=== PATIENT | male | born 1950 ===

== ENCOUNTER 2019-06-16 20:36 | Observation (INO) | payer MEDICARE ==
--- OUTSIDE RECORDS SUMMARY | 2019-06-16 20:49 | XMS REPORT | Continuity of Care Document ---
:1950 External Reference #:[id number] Author Name Donnie Estrada MD Address [address] [place] [address] Care Team Providers Name Role Phone Cary Ling M.D. Care Team Information Cab Starter [phone] Problems Active Problems Provider Date Essential hypertension Donnie Estrada MD Onset: 07/22/2008 Social History Type Date Description Comments Sex Unknown Tobacco Use Start: Unknown Never Smoked Cigarettes Tobacco Use Start: Unknown has never smoked cigars Tobacco Use Start: Unknown has never smoked a pipe Smokeless Tobacco has never used smokeless tobacco ETOH Use Current Alcohol Use Occasionally ETOH Use Currently occasionally consumes alcohol Tobacco Use Start: Unknown Patient has never smoked Smoking Status Reviewed: 06/04/19 Patient has never smoked Allergies, Adverse Reactions, Alerts Description No Known Drug Allergies Medications Active Medications SIG Qnty Indications Ordering Provider Date Crestor Unknown Lisinopril Unknown Metoprolol as directed Unknown Clopidogrel Bisulfate as directed Unknown 75mg Tablets Immunizations Description No Information Available Vital Signs Date Vital Result Comment 06/04/2019 2:23pm Weight 199.00 lb Weight 90.266 kg Height 68 inches 5'8" Height in cm's 172.7 cm BMI (Body Mass Index) 30.3 kg/m2 01/28/2009 3:56pm Heart Rate 88 /min Respiratory Rate 16 /min Weight 195.00 lb Weight 88.452 kg Results Description No Information Available Procedures Date Code Description Status 06/04/2019 40376 Tympanometry Completed 06/04/2019 54323 Comprehensive Audiogram Completed Medical Devices Description No Information Available Encounters Type Date Location Provider Dx Diagnosis Office Visit 06/04/2019 Linda Tolentino H61.23 Impacted cerumen, 2:15p 09/25/07 MD Sean bilateral H90.3 Sensorineural hearing loss, bilateral Assessments Date Code Description Provider 06/04/2019 H61.23 Impacted cerumen, bilateral Donnie Estrada MD 06/04/2019 H90.3 Sensorineural hearing loss, bilateral Donnie Estrada MD Plan of Treatment No Information Available Functional Status Description No Information Available Mental Status Description No Information Available Referrals Description No Information Available
--- NOTE | 2019-06-16 21:28 | ED ---
Syncope/Near Syncope - HPI Summary HPI Summary: The patient is a 69 y/o M arriving by ambulance to [facility] accompanied by with a chief complaint of syncopal episode with LOC and loss of consciousness occurring at 1830 tonight. He reports that he had been outside on his porch grilling chicken when he went and sat the chicken with his and had a sudden onset sensation of decreased appetite. He then had a syncopal episode which he doesnt remember, but his notes that he slumped over into the chair and was profusely diaphoretic. His then called 911, but the pt had to pass a BM, so his walked him to the bathroom, and the pt notes he somewhat remembers this. He does remember when EMS arrived. There was no head trauma associated. Currently, he states he feels 80% normal with symptoms rated 0/10 in severity. He denies any CP, SOB, headache, or dizziness. PMHx: angina, CAD, HTN, martin [place], cardiac stent placement. FHx: cardiac disease (TN in father). Nonsmoker, weekly EtOH, no substance use. Medications reviewed. Allergies noted. - History Of Current Complaint Chief Complaint: EDSyncope Time Seen by Provider: 06/16/19 21:19 Hx Obtained From: Patient, Family/Mold Laminator - Onset/Duration: Sudden Onset, Still Present - feels mostly back to normal but awake, alert and oriented in the ED Timing: Hours - 1830 Context: Witnessed, Loss Of Consciousness Activity At Onset: Other - ambulating at home Associated Head Trauma: No Aggravating Factor(s): Nothing Alleviating Factor(s): Nothing Associated Signs And Symptoms: Diaphoresis, Other - Negative: headache, CP, SOB , dizziness - Allergies/Home Medications Allergies/Adverse Reactions: Allergies Allergy/AdvReac Type Severity Reaction Status Date / Time No Known Allergies Allergy Verified 06/30/16 11:18 PMH/Surg Hx/FS Hx/Imm Hx Endocrine/Hematology History: Denies: Hx Diabetes Cardiovascular History: Reports: Hx Angina, Hx Coronary Artery Disease, Hx Hypercholesterolemia, Hx Hypertension, Hx Myocardial Infarction - martin [place], Hx Valvular Heart Disease Respiratory History: Denies: Hx Asthma Sensory History: Reports: Hx Contacts or Glasses Opthamlomology History: Reports: Hx Contacts or Glasses - Surgical History Surgical History: Yes Surgery Procedure, Year, and Place: cardiac stents Infectious Disease History: No Infectious Disease History: Denies: Traveled Outside the [place] in Last 30 Days - Family History Known Family History: Positive: Cardiac Disease - father with TN and CAD, Hypertension - Social History Alcohol Use: Weekly Hx Substance Use: No Substance Use Type: Reports: None Hx Tobacco Use: No Smoking Status (MU): Never Smoked Tobacco Have You Smoked in the Last Year: No Review of Systems Positive: Skin Diaphoresis Negative: Chest Pain Negative: Shortness Of Breath Neurological: Other - Negative: dizziness. Positive: Syncope All Other Systems Reviewed And Are Negative: Yes Physical Exam - Summary Physical Exam Summary: Appearance: Well-appearing, Well-nourished, lying in bed comfortably Skin: Warm, dry, no obvious rash Eyes: sclera anicteric, no conjunctival pallor ENT: mucous membranes moist, pharynx appears normal Neck: Supple, nontender Respiratory: Clear to auscultation, no signs of respiratory distress Cardiovascular: Normal S1, S2. No murmurs. Normal distal pulses in tibial and radial bilaterally. Abdomen: Soft, nontender, normal active bowel sounds present Musculoskeletal: Normal, Strength/ROM Intact, Motor function in all 4 extremities is normal and symmetric. There is no rigidity or tremor noted. Neurological: A&Ox3, awake and alert, mentation is normal, speech is fluent and appropriate Psychiatric: affect is normal, does not appear anxious or depressed Triage Information Reviewed: Yes Vital Signs On Initial Exam: Initial Vitals Temp Pulse Resp BP Pulse Ox 97.5 F 68 16 110/72 94 06/16/19 21:04 06/16/19 21:04 06/16/19 21:04 06/16/19 21:04 06/16/19 21:04 Vital Signs Reviewed: Yes Diagnostics - Vital Signs Vital Signs Temp Pulse Resp BP Pulse Ox 06/16/19 21:04 97.5 F 68 16 110/72 94 - Laboratory Result Diagrams: 06/16/19 22:31 06/16/19 22:57 Lab Statement: Any lab studies that have been ordered have been reviewed, and results considered in the medical decision making process. - Radiology CXR Radiology Interpretation Completed By: ED Physician Summary of Radiographic Findings: No acute process. ED physician has interpreted this report. Pending official report. - EKG 2248 Cardiac Rate: NL - 62 bpm EKG Rhythm: Sinus Rhythm Summary of EKG Findings: NSR at 62 P waves, QRS complex, and T waves are within normal limits, T waves and intervals are normal. Isolated PAC. This is an otherwise normal EKG. ED physician has reviewed and interpreted this EKG. Re-Evaluation - Re-Evaluation First Eval Re-Evaluation Time: 23:15 Comment: We discussed all results and plan for admission. Course/Dx Course Of Treatment: Pt is a 69 y/o M arriving by ambulance with cc of syncopal event accompanied by transient LOC and diaphoresis without any other symptoms including CP, SOB, headache, or dizziness occurring at 1830 tonight. Upon physical exam, the pt exhibits no acute abnormalities. EKG at 2245 reveals NSR at 62 BPM with isolated PAC but is otherwise normal. Blood work reveals hct of 39, MCH of 33, plt count of 122, carbon dioxide of 21, glucose of 111, calcium of 8.4, total protein of 5.8, and globulin of 1.9. Chest x-ray is negative, per my interpretation. Dr. Vergara, hospitalist, accepts the pt for admission at 2330. He understands and agrees with this plan. Dx is syncope. - Diagnoses Provider Diagnoses: Syncope - Physician Notifications Discussed Care of Patient With: Mike Vergara - hospitalist Time Discussed With Above Provider: 23:30 Instructed by Provider To: Admit As Observation - I discussed the pt's case with Dr. Vergara, and he accepts the pt for admission. Discharge ED - Sign-Out/Discharge Documenting (check all that apply): Patient Departure - Patient is accepted for admission by Patient Received Moderate/Deep Sedation with Procedure: No - Discharge Plan Condition: Stable Disposition: ADMITTED TO [facility] Referrals: Austin Centeno MD [Primary Care Provider] - - Billing Disposition and Condition Condition: STABLE Disposition: Admitted to [facility] - Attestation Statements Document Initiated by Scribe: Yes Documenting Scribe: Ade Kingston Provider For Whom Sergeyibjase is Documenting (Include Credential): Dr. Walter Mcgee MD Scribe Attestation: Ade Durand, scribed for Dr. Walter Mcgee MD on 06/16/19 at 2359. Status of Scribe Document: Ready
[2019-06-16] MEDS ORDERED: NS 0.9% 1000 ML** 2,000 ML IV ONE (22:36)
[2019-06-16 23:03] LABS: ABS Lymphocytes 0.9 10^3/ul (1.0-4.8); ABS Monocytes 0.4 10^3/ul (0-0.8); ABS Neutrophils 6.7 10^3/ul (1.5-7.7); Eosinophil % 0.2 %; Hematocrit 39 % (42-52); Lymphocyte % 11.8 %; Mean Corpuscular HGB Conc 36 g/dL (31-36); Mean Corpuscular Hemoglobin 33 pg (27-31); Mean Corpuscular Volume 94 fL (80-94); Mean Platelet Volume 8.1 fL (7.4-10.4); Platelet Count 122 10^3/uL (150-450); Red Blood Count 4.18 10^6 /uL (4.18-5.48); Red Cell Distribution Width 13 % (10-15)
[2019-06-16 23:20] LABS: Albumin 3.9 g/dL (3.2-5.2); Albumin/Globulin Ratio 2.1 (1-3); BUN/Creatinine Ratio 11.8 (8-20); Calcium 8.4 mg/dL (8.6-10.3); EGFR African American 80.3 (>60); EGFR Non-African American 66.4 (>60); Globulin 1.9 g/dL (2-4); Magnesium 1.9 mg/dL (1.9-2.7); Total Bilirubin 0.4 mg/dL (0.2-1.0); Total Protein 5.8 g/dL (6.4-8.9)
[2019-06-17 00:04] LABS: TSH (Thyroid Stimulating Horm) 0.53 mcIU/mL (0.34-5.60)
[2019-06-17] MEDS: Lactated Ringers 1000 ML Bag* 1,000 ML IV SCH ×2 (02:59→12:27)
[2019-06-17] MEDS: Enoxaparin(*) 40 MG/0.4 ML SYR SUBCUT SCH ×2 (03:04→20:35)
[2019-06-17 05:27] LABS: ABS Lymphocytes 1.5 10^3/ul (1.0-4.8); ABS Monocytes 0.3 10^3/ul (0-0.8); ABS Neutrophils 3.2 10^3/ul (1.5-7.7); Eosinophil % 0.9 %; Hematocrit 38 % (42-52); Hemoglobin 13.6 g/dL (14.0-18.0); Lymphocyte % 29.7 %; Mean Corpuscular HGB Conc 36 g/dL (31-36); Mean Corpuscular Hemoglobin 34 pg (27-31); Mean Corpuscular Volume 94 fL (80-94); Mean Platelet Volume 8.8 fL (7.4-10.4); Nucleated Red Blood Cells % 0.1; Platelet Count 113 10^3/uL (150-450); Red Blood Count 4.04 10^6 /uL (4.18-5.48); Red Cell Distribution Width 13 % (10-15); White Blood Count 5.1 10^3/uL (3.5-10.8)
[2019-06-17 05:42] LABS: Albumin 3.8 g/dL (3.2-5.2); BUN/Creatinine Ratio 11.5 (8-20); EGFR Non-African American 77.7 (>60); Globulin 1.9 g/dL (2-4); Potassium 4.1 mmol/L (3.5-5.0); Total Bilirubin 0.5 mg/dL (0.2-1.0); Total Protein 5.7 g/dL (6.4-8.9)
--- NOTE | 2019-06-17 07:50 | HP ---
CC: Dr. Donnie Evans * ADMISSION HISTORY AND PHYSICAL: DATE OF ADMISSION: 06/17/19 PRIMARY CARE PHYSICIAN: Austin Centeno MD; however, the patient does not recollect the new PCP as he only saw the doctor once. FIREWORKS INSPECTOR: Dr. Evans. CHIEF COMPLAINT: Syncope. HISTORY OF PRESENT ILLNESS: This is a 69-year-old male with past medical history of hypertension, hyperlipidemia, coronary artery disease status post 3 stents in 2014, was brought in due to syncopal episode. The patient stated that he was in his usual state of health up until this evening when he was grilling some chicken on the porch. He took a piece of the chicken and brought it to his and sat down; at which point, he was feeling severely dizzy and some nausea. He does not recollect after that. The next thing, he remembers is waking up. According to his , he sat down and he just suddenly slumped over unconscious and he had a loss of consciousness for about 2 minutes. There is no documentation of any limb movement during this time; however, the patient did have an episode of loose bowel movement with bowel incontinence during the altered mental status. After which, he woke up and he was walking towards the bathroom as he noticed that he soiled himself but he continued to have dizziness throughout this time. He never hit his head anywhere and he remembers coming to the ER and once he was arriving to the ER his dizziness slowly improved. Upon arrival into the ER, he stated that he was 80% of his normal. He no longer had any nausea and denies any abdominal pain throughout the event. He denies any other numbness, tingling, any blurry vision, any vomiting episodes. He denies any sick contacts. He stated that his last meal was at lunch time when he had sausage and a bottle of water and for breakfast he had some coffee. did notice the patient was having profuse sweating during the episode of loss of consciousness and breathing heavy. PAST MEDICAL HISTORY: As mentioned in the HPI. 1. Hyperlipidemia. 2. Hypertension. 3. Coronary artery disease status post 3 stents. PAST SURGICAL HISTORY: Three stents but otherwise no surgeries. HOME MEDICATIONS: The patient is on: 1. Toprol 12.5 mg oral daily. 2. Lisinopril 10 mg oral daily. 3. Plavix 75 mg oral daily. 4. Aspirin 81 mg oral daily. 5. Atorvastatin 10 mg oral daily. ALLERGIES: The patient has no known drug allergies. FAMILY HISTORY: Noncontributory at his age of 69. SOCIAL HISTORY: The patient denies any smoking, alcohol, or drugs. He does drink alcohol on occasional. Lives with his . He is a full code and his would be his surrogate decision maker. He works as [employer] for [employer]. REVIEW OF SYSTEMS: A 14-point review of systems did not reveal any new information other than what is mentioned in the HPI. PHYSICAL EXAMINATION GENERAL: The patient is awake, alert, and oriented x3, did not appear to be in any acute respiratory distress. VITAL SIGNS: In the ER, initially BP was noted to be 110/72 upon arrival, which improved to 131/74 after 2 L of IV fluid, heart rate initially was noted to be 68 and during my evaluation was noted to be 71, respiration rate was 16 went up as high as 22, saturation remained at 94% to 96% on room air, temperature was documented at 97.5. HEAD AND NECK: Atraumatic, normocephalic. Bilateral pupils are reactive. Oral mucosa was moist. Neck: Supple. No jugular venous distention. LUNGS: Clear to auscultation bilaterally. No wheezing, rhonchi, or rales. HEART: S1, S2. Regular rate and rhythm. ABDOMEN: Soft, nontender, nondistended. EXTREMITIES: No cyanosis, clubbing, or edema. NEUROLOGIC: The patient had good strength on 4 extremities without any deficits. DIAGNOSTIC STUDIES/LAB DATA: CBC was unremarkable. Comprehensive metabolic panel was unremarkable except for minimally elevated lactic acid at 2.1. One set of troponin was negative. LFTs were within normal limits. PA lateral x-ray did not reveal any pulmonary congestion. EKG shows sinus rhythm at 62 beats per minute when compared to his old EKG from 2009, there was no real significant change noted to my eye. IMPRESSION: This is a 69-year-old gentleman here with syncopal episode accompanied with bladder incontinence. ASSESSMENT AND PLAN: 1. Syncope questionable vasovagal versus neurocardiogenic possible seizure. We will get echocardiogram, carotid Doppler's and we will also get EEG studies to rule out any seizure. 2. History of coronary artery disease status post stenting. We will restart his home aspirin and Plavix. 3. History of hypertension. Restart home BP medications, but we will place holding parameters. 4. Elevated lactic acid likely dehydration. We will continue to hydrate the patient and repeat lactic acid level in the morning. 5. DVT prophylaxis, on Lovenox. 6. Code status: The patient is full code with being surrogate decision maker. [id number]/[facility] #: [id number] MTDD
[2019-06-17] MEDS: Lisinopril TAB* 10 MG PO SCH (08:02)
[2019-06-17] MEDS: Metoprolol Succinate XL TAB* 25 MG PO SCH (08:02)
[2019-06-17] MEDS: Aspirin EC TAB* 81 MG TAB.EC PO SCH (08:02)
[2019-06-17] MEDS: Atorvastatin* 10 MG TAB PO SCH (08:02)
[2019-06-17] MEDS: Clopidogrel TAB* 75 MG PO SCH (08:02)
[2019-06-17] MEDS ORDERED: Lisinopril TAB* 10 MG PO SCH (09:00)
[2019-06-17] MEDS ORDERED: Metoprolol Succinate XL TAB* 25 MG PO SCH (09:00)
--- NOTE | 2019-06-17 09:40 | ECHO ---
*[facility]* [place] [address] Fax #: [phone] Transthoracic Echocardiogram Patient: Juan Young : 1950 Study Date: 06/17/2019 Age: 69 Gender: M HR: 65 bpm Height: 68 in /172.7 cm BSA: 2.09 m^2 Weight: 196.6 lb /89.4 kg BMI: 30 kg/m^2 *Roll Setter: * Elena Sheffield RDCS RN *Referring Physician: * Mike Vergara *Reading Physician: * Kenny Galloway MD Indications: Syncope. History: Coronary artery disease with stenting. Risk factors: Hypertension. Dyslipidemia. Conclusions Summary: - Left ventricle: The cavity size is normal. Wall thickness is mildly to moderately increased. Systolic function is normal. The estimated ejection fraction is 55-60%. Wall motion is normal; there are no regional wall motion abnormalities. - Right ventricle: Systolic function is normal. - Mitral valve: There is trace regurgitation. - Aortic valve: There is no evidence of stenosis. There is no regurgitation. - Tricuspid valve: There is trace regurgitation. - Pericardium, extracardiac: There is no pericardial effusion. - Pulmonary arteries: Systolic pressure cannot be accurately estimated. - Study data: No prior study is available for comparison. Study data: Transthoracic echocardiogram. Procedure: Transthoracic echocardiography was performed. Image quality was fair. The study was technically limited due to body habitus. Complete 2D, spectral Doppler, and color flow Doppler. Location: Bedside. Patient status: Observation. Patient room number: 441-02. No prior study is available for comparison. Rhythm: Normal sinus rhythm with PAC's. Findings Left ventricle: The cavity size is normal. Wall thickness is mildly to moderately increased. Systolic function is normal. The estimated ejection fraction is 55-60%. Wall motion is normal; there are no regional wall motion abnormalities. There is no consistent Doppler evidence of clinically significant diastolic dysfunction. Right ventricle: The cavity size is normal. Wall thickness is mildly to moderately increased. Systolic function is normal. Left atrium: The atrium is normal in size. Right atrium: The atrium is normal in size. Mitral valve: The leaflets are mildly thickened. There is no evidence of stenosis. There is trace regurgitation. Aortic valve: The valve is trileaflet. The leaflets are mildly thickened. There is no evidence of stenosis. There is no regurgitation. Tricuspid valve: The valve is structurally normal. There is no evidence of stenosis. There is trace regurgitation. Pulmonic valve: The valve is structurally normal. There is no evidence of stenosis. There is trace regurgitation. Aorta: Aortic root: The aortic root is not dilated. Ascending aorta: The ascending aorta is not dilated. Aortic arch: The aortic arch is not dilated. Pericardium: There is no pericardial effusion. Pulmonary arteries: The main pulmonary artery is normal-sized. Systolic pressure cannot be accurately estimated. Systemic veins: Inferior vena cava: The vessel is normal in size. There is (>= 50%) respiratory change in the IVC dimension. Measurements Left ventricle Value Ref Right atrium continued Value Ref CORIE, LAX 4.7 cm 4.2 - SI dim, ES, A4C 4.9 cm 3.4 - 5.3 5.8 SI dim/bsa, ES, 2.3 cm/m^2 1.8 - 3.0 ESD, LAX 3.1 cm 2.5 - A4C 4.0 FS, LAX 33 % 25 - 43 Aortic valve Value Ref PW, ED (H) 1.3 cm 0.6 - Peak v, S 1.22 m/sec --------- 1.0 VTI, S 28.1 cm --------- IVS/PW, ED 1.04 -------- Mean grad, S 4.2 mm Hg --------- E', lat leidy, TDI (L) 8.0 cm/sec >=10.0 Peak grad, S 6.0 mm Hg - -------- E/e', lat leidy, TDI 11 -------- LVOT/AV, VTI 0.78 ---- ----- E', med leidy, TDI 7.0 cm/sec >=7.0 ratio E/e', med leidy, TDI 13 -------- E', avg, TDI 7.5 cm/sec -------- Mitral valve Value Ref E/e', avg, TDI 12 <=14 Peak E 0.88 m/sec - -------- Peak A 0.77 m/sec --------- LVOT Value Ref Decel time 179 ms --------- Peak patrick, S 1.09 m/sec -------- Peak grad, D 3.1 mm Hg --------- VTI, S 22.0 cm -------- Peak E/A ratio 1.14 --------- Peak grad, S 5 mm Hg -------- Mean grad, S 3 mm Hg -------- Pulmonic valve Value Ref Peak v, S 0.88 m/sec --------- Ventricular septum Value Ref Peak grad, S 3.1 mm Hg --------- IVS, ED (H) 1.3 cm 0.6 - 1.0 Aortic root Value Ref Root diam 3.1 cm <4.2 Right ventricle Value Ref AW thickness, ED (H) 1.1 cm 0.1 - Ascending aorta Value Ref 0.5 AAo AP diam, S 2.9 cm --------- CORIE, LAX 2.6 cm -------- CORIE minor ax, A4C 3.0 cm 1.9 - Aortic arch Value Ref mid 3.5 Arch diam 2.6 cm --------- Left atrium Value Ref Decending aorta Value Ref SI dim ES, LAX 3.3 cm -------- Ammon peak patrick 0.75 m/sec --------- ML dim, A4C 4.2 cm -------- SI dim, A4C 5.5 cm -------- Inferior vena cava Value Ref Vol, ES, 2-p 61 ml -------- Diam 2.1 cm --------- Vol/bsa, ES, 2-p 29 ml/m^2 16 - 34 Right atrium Value Ref ML dim, ES, A4C 3.9 cm 2.6 - 4.4 Legend: (L) and (H) shayy values outside specified reference range. Prepared and electronically signed by Kenny Galloway MD 06/17/2019 09:40
[2019-06-17 10:57] LABS: Urine Appearance Clear; Urine Bacteria Absent (Absent); Urine Bilirubin Negative (Negative); Urine Blood 1+ (Negative); Urine Color Colorless; Urine Glucose Negative (Negative); Urine Ketones Negative (Negative); Urine Nitrite Negative (Negative); Urine Protein Negative (Negative); Urine Red Blood Cell Trace(0-2/hpf) (Absent); Urine Specific Gravity 1.002 (1.010-1.030); Urine Urobilinogen Negative (Negative); Urine White Blood Cell Absent (Absent)
--- NOTE | 2019-06-17 13:09 | PN ---
Hospitalist Progress Note Date of Service: 06/17/19 I have seen and examined Mr. Young this morning. He is feeling well and back to normal. His is at the bedside. He has no complaints. He is a 69 year old man with history of CAD, HLD, HTN who had an episode of unconsciousness yesterday lasting 2 minutes, preceded by confusion and followed by confusion and weakness with continence. Vitals have remained within normal limits. Will follow up on studies ordered by Dr. Vergara including EEG, carotid dopplers. Remaining work up has remained negative thus far. Seizure is on the differential but no risk factors; will consult Dr. Koo.
--- NOTE | 2019-06-17 19:14 | CONS ---
NEUROLOGY CONSULTATION: DATE OF CONSULT: 06/17/19 LOCATION: He is an inpatient in room 441. CHIEF COMPLAINT: Episode of loss of consciousness. HISTORY OF PRESENT ILLNESS: Juan Young is a 69-year-old man who was just seated with his last evening to have dinner. He remembers bringing some chicken for the grill and sitting down next to her. He remembers suddenly feeling not hungry when he was very hungry prior to that. He remembers stating "I am not hungry" and then the next thing he knew he was coming to the chair that he had been sitting in. He had been incontinent of bowel. He remembers crossing to the room to go and change his clothes. He remembers coming to to hear his frantically calling 911. He gradually recovered and was brought into the emergency room and admitted. In the emergency room, his initial blood pressure was 110/72. His chemistries were unremarkable. He did have an elevated lactic acid at 2.1, which normalized by this morning. His is present in the room this evening. She reports that he sat there and suddenly said he was not hungry, which she thought was odd. He then started to lose awareness of his surroundings. She tried to rub his face and get him to respond, but he remained unresponsive. He broke out into a drenching sweat. It was getting dark outside, so she was not sure if there was a change in his complexion. She ran to get the phone and called 911. While she was still on the phone, she saw him walking across the room unsteadily. She believes he was unconscious for perhaps a minute or at least less than 2 minutes. There is no prior history of syncope. There is no history of seizures, transient ischemic attacks, or strokes. There is no history of head trauma or epilepsy. He does have a history of coronary artery disease. PAST MEDICAL HISTORY: Notable for coronary artery disease including stenting, hypertension, hyperlipidemia. MEDICATIONS: At home consist of: 1. Aspirin 81 mg p.o. daily. 2. Atorvastatin 10 mg p.o. daily. 3. Toprol 12.5 mg p.o. daily. 4. Lisinopril 10 mg p.o. daily. 5. Plavix 75 mg p.o. daily. ALLERGIES: He does not have any drug allergies. REVIEW OF SYSTEMS: Negative for recent illnesses or fevers. He was working in his garage and it was very hot yesterday and he believes he sweated quite a bit. He had 1 glass of wine yesterday afternoon. He had not eaten dinner before the episode of loss of consciousness. He had 1 bottle of water at lunch , but other than that did not have much of anything to drink during the afternoon. He does not smoke. 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 He has not had any recent chest pain or shortness of breath. There has been no recent change in weight. PHYSICAL EXAMINATION: He is well hydrated and up and overweight. Most recent vitals: Temperature 97.4, blood pressure 157/66, heart rate is in the 60s, respiratory rate is 16 and oxygen saturation is 95% on room air. Heart is in a regular rhythm without murmurs with occasional extra beats. There are no cervical bruits. Lungs are clear bilaterally. Head is atraumatic. Oral mucosa is moist and atraumatic. Neurologic Exam: Pupils react equally from 4 down to 2.5 mm. Eye movements are normal. Funduscopic exam is normal bilaterally. Visual mary are full to confrontation. Facial musculature is intact and symmetric. Facial sensation to light touch is symmetric. Palate and tongue appear normal and speech is clear without dysarthria. Motor exam reveals normal tone and strength in upper and lower extremities. There is no drift of any limb. Sensory exam is intact and symmetric to light touch and pin in all extremities. Reflexes are intact and symmetric, quite brisk at the knees , plantar responses are flexor bilaterally. Gait is normal and Romberg's sign is absent. Wlaggx-ch-gjhc maneuver is normal. There is no rest or sustention tremor. Finger taps are normal in the hands. He is alert and oriented and a good detailed historian with intact memory and fluent language. He has adequate attention, concentration, and fund of knowledge. DIAGNOSTIC STUDIES/LABORATORY DATA: Includes a carotid Doppler study done earlier today, which revealed very mild atherosclerotic plaquing at the carotid bifurcations without stenosis. A CT scan of the brain was obtained early this morning, interpreted as a normal CT scan of the brain. I reviewed the images personally and I agreed. A trans-thoracic echocardiogram done earlier today is a normal transthoracic echocardiogram. Other laboratory data is notable for normal chemistry profile on admission including BUN. Again, he had an elevated lactic acid, which normalized. His TSH is normal at 0.53. CBC is normal other than a platelet count of 113,000, which is similar to historical values in the electronic medical record. He has mild anemia with a hemoglobin of 13.6. Urinalysis was done this morning at about 10:30 and a normal urine specific gravity and otherwise negative urinalysis. IMPRESSION AND PLAN: Impression is that of syncope. My main concern would be that of an arrhythmia, but at this point, none has become evident. He had EEG, which was done earlier today and I will review that later. I do not think he had a seizure by description. There is no evidence to suggest that this is a cerebral vascular event. I would recommend he stay in the hospital for telemetry overnight and if no arrhythmias develop and his EEG is normal, then I think he will be discharged home. He follows with Dr. Evans at least a couple of times a year. [id number]/[facility] #: [id number] VAISHNAVI
[2019-06-18] MEDS: Aspirin EC TAB* 81 MG TAB.EC PO SCH (08:14)
[2019-06-18] MEDS: Clopidogrel TAB* 75 MG PO SCH (08:14)
[2019-06-18] MEDS: Atorvastatin* 10 MG TAB PO SCH (08:14)
[2019-06-18] MEDS: Lisinopril TAB* 10 MG PO SCH (08:14)
[2019-06-18] MEDS: Metoprolol Succinate XL TAB* 25 MG PO SCH (08:15)
--- NOTE | 2019-06-18 10:57 | EEG ---
ELECTROENCEPHALOGRAPHY: DATE OF STUDY: 06/17/19 LOCATION: He is an inpatient in room 441. REFERRING PROVIDER: Dr. Mike Vergara. CHIEF COMPLAINT: Episode of loss of consciousness the day prior to this recording. There is no prior history of seizures. MEDICATIONS: Include: 1. Toprol. 2. Prinivil. 3. Plavix. 4. Lipitor. 5. Aspirin. REPORT: This 19-channel EEG is remarkable for background rhythms consisting of a well formed alpha rhythm in the occipital derivations at 10 to 10.5 cycles per second, which is symmetric. Lower voltage beta rhythms are seen bifrontally. The patient is awake. Occasional eye movement artifact is noted. Activation procedures are not attempted. The patient drowses and ultimately falls asleep with vertex sharp activity and sleep spindles. The patient is awoken at the end of the recording with a normal arousal response. There are no clinical events. There are no focal, lateralized, or epileptiform abnormalities. CLINICAL IMPRESSION: Normal awake and asleep EEG. [id number]/[facility] #: [id number] [facility] HOSPITALGloria
[2019-06-18 11:13] VITALS: BP 138/62
--- NOTE | 2019-06-18 11:14 | DS ---
CC: Dr. Ling* DATE OF ADMISSION: 06/17/2019. DATE OF DISCHARGE: 06/18/2019 PRINCIPAL DISCHARGE DIAGNOSIS: Syncope. SECONDARY DISCHARGE DIAGNOSES: 1. Coronary artery disease. 2. Hypertension. 3. Hyperlipidemia. MEDICATIONS AT DISCHARGE: 1. Lisinopril 10 mg daily. 2. Atorvastatin 10 mg daily. 3. Toprol 12.5 mg daily. 4. Aspirin 81 mg daily. 5. Plavix 75 mg daily. PHYSICAL EXAMINATION AT DISCHARGE: General: Alert, well-appearing man in no distress, resting comfortably in bed with his at the bedside. Vital Signs : Temperature 97.3, heart rate 56, respiratory rate 22, pulse ox 88 on room air , blood pressure 139/61. HEENT: Pupils equal, round and reactive to light. No nystagmus. Oral mucosa is moist. Neck: No JVP or adenopathy. Chest: Regular rate and rhythm. Lungs: Clear bilaterally. Abdomen: Obese, soft, nontender, nondistended. No guarding or rebound. No CVA tenderness. Extremities: No edema, rashes, or ulcers. Neurologic: He is alert, has good concentration, good recall. His strength is 5/5 in all extremities. His gait is normal. PERTINENT TESTING ON THIS ADMISSION: 1. Brain CT on 06/17/2019 showed no acute intracranial abnormality. 2. Carotid Doppler study on 06/17/2019 showed very mild atherosclerotic plaque at the carotid bifurcations without Doppler evidence for hemodynamic significant resulting stenosis. 3. A transthoracic echocardiogram on 06/17/2019 showed normal LV cavity size, systolic function is normal, the EF is 55 to 60 percent, wall motion is normal, and no regional wall motion abnormalities; RV systolic function is normal; trace mitral valve regurgitation; no aortic stenosis, no aortic regurgitation; trace tricuspid regurgitation; no pericardial effusion. 4. An EKG showed normal sinus rhythm, normal axis, normal intervals, no ST or T changes and an isolated Q-wave in lead 3. HOSPITAL COURSE BY PROBLEM: 1. Syncope: Please see the history and physical by Dr. Vergara for a complete description of the HPI. The etiology of the syncope was not clear based on this hospitalization. He had an extensive work-up including an ACS rule out, an EKG monitoring on telemetry for over 24 hours, a transthoracic echocardiogram , a carotid Doppler ultrasound, an EEG, and a metabolic and infectious work-up, and these were all unremarkable. He had no evidence of volume depletion despite it being a very hot day that he was admitted and him having worked outside, and his cardiac and neurologic work-ups were negative as above. He was evaluated by Dr. Koo given the concern for syncope versus seizure and Dr. Koo did not think this was a seizure. The official EEG report is pending at the time of discharge, but he reports that it was unremarkable. Mr. Young is instructed to follow-up with his primary care physician and return to the emergency department should his symptoms return. 2. 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 3. Hypertension: He was normotensive throughout his hospitalization on his home antihypertensives. DISPOSITION: Mr. Young is being discharged to home with his with follow- up with his primary care provider and his conveyor belt installer. CONDITION ON DISCHARGE: Stable. [id number]/[facility] #: [id number] MTDGloria
--- NOTE | 2019-06-18 13:47 | CONS ---
NEUROLOGY FOLLOWUP NOTE: DATE OF FOLLOWUP: 06/18/19 LOCATION: He was inpatient in room 441. HOSPITALIST: Dr. Villegas. CHIEF COMPLAINT: Episode of loss of consciousness. INTERVAL HISTORY: Since yesterday, Mr. Young feels well. He has not had any problems with lightheadedness, intestinal problems, faints, or falls. MEDICATIONS: Reviewed and is on: 1. Clopidogrel 75 mg p.o. daily. 2. Aspirin 81 mg p.o. daily. 3. Atorvastatin 10 mg p.o. daily. 4. Lovenox 40 mg subcutaneous daily. 5. Lisinopril 10 mg p.o. daily. 6. Metoprolol XL 12.5 mg p.o. daily. PHYSICAL EXAMINATION: He is well nourished and well hydrated. He is afebrile. Blood pressure 140/80, heart rate 66 and regular. DIAGNOSTIC STUDIES/LAB DATA: Notable for an EEG which I reviewed and which is a normal awake and sleep EEG. IMPRESSION: Impression is that of a syncopal episode. There has been no evidence of an arrhythmia and so apparently is vasovagal. I do not think he had a seizure and there is no evidence with history or workup to suggest a cerebrovascular event. I think he could be discharged on his usual medicines to follow up with his primary care provider. [id number]/[facility] #: [id number] VAISHNAVI
== END 2019-06-18 11:10 | disposition home or self-care (01) ==
LOC: ED 20:36 → MEDTELE 06-17 01:27
PROVIDERS: ADMIT Internal Medicine; ATTEND Internal Medicine
DX: R55 Syncope and collapse (principal); I25.10 Atherosclerotic heart disease of native coronary artery without angina pectoris; I10 Essential (primary) hypertension; E78.5 Hyperlipidemia, unspecified; Z79.899 Other long term (current) drug therapy; Z79.82 Long term (current) use of aspirin; Z95.5 Presence of coronary angioplasty implant and graft; E86.0 Dehydration
CPT/HCPCS: 36415; 70450; 71046; 80053; 81003; 81015; 83605; 83735; 84443; 84484; 85025; 93005; 93306; 93880; 95819; 96360; 96361; 96372; 99284; A9270-GY; G0378; J1650